=== PATIENT | male | born 1965 | race Caucasian/White ===

== ENCOUNTER 2022-10-17 22:40 | Observation (INO) ==
[2022-10-17] MEDS ORDERED: KETOROLAC 30 MG/ML VIAL IV STA (22:54)
[2022-10-17] MEDS ORDERED: SODIUM CHLORIDE 0.9% 1000ML 1,000 ML IV ONE (22:54)
[2022-10-17] MEDS ORDERED: TAMSULOSIN HCL 0.4 MG CAP PO ONE (23:23)
--- NOTE | 2022-10-17 23:26 | Emergency Department Note ---
History of Present Illness General Chief complaint: Abdominal Pain Stated complaint: KIDNEY STONES,SEVERE ABDOMINAL PAIN, Time Seen by Provider: 10/17/22 22:53 History of Present Illness Maximum Pain Intensity: 8 57-year-old male presents emergency department was actually seen by me last night and diagnosed with a 3 mm kidney stone at the right UVJ he presents stating that he did take pain medicine that I prescribed him at noon and around 6 PM tonight states that the pain is increased was unable to sleep due to the pain states the pain is right flank there are no other specific complaints of nausea vomiting or fever. There are no other mitigating or alleviating factors Home Medications Medication Instructions Recorded Confirmed Type hydrocodone 5 mg-acetaminophen 325 1 tab PO Q6H PRN pain #14 tabs 10/17/22 10/17/22 Rx mg tablet ondansetron 4 mg disintegrating 4 mg PO Q8H 5 days #15 tabs 10/17/22 10/17/22 Rx tablet tamsulosin 0.4 mg capsule (Flomax) 0.4 mg PO DAILY #7 caps 10/17/22 10/17/22 Rx Allergies Allergy/AdvReac Type Severity Reaction Status Date / Time No Known Allergies Allergy Verified 10/17/22 00:35 Past Med/Surg History Social History Smoking Status: Former smoker Preferred Language: Solomon Islander Feels Safe at Home: Yes Immunizations: Past medical history is kidney stones Review of Systems A total of 10 systems reviewed and were otherwise negative Genitourinary (Male): + flank pain Physical Exam Vital Signs Vital Signs - 24 hr 10/17/22 22:42 10/17/22 22:54 10/17/22 22:54 Temperature 35.9 C L Temperature Source Temporal Artery Scan Pulse Rate 78 Pulse Rate [Apical] 64 Pulse Rate from SpO2 Sensor Pulse Rhythm [Apical] Regular Pulse Strength [Apical] Normal Respiratory Rate 18 18 Respiratory Effort / Characteristics Non-Labored Spontaneous Non-Labored Respiratory Depth Normal Normal Respiratory Pattern Regular Blood Pressure 165/94 H Blood Pressure [Right Arm] 174/96 H Blood Pressure Mean 117 Blood Pressure Mean [Right Arm] 122 Blood Pressure Position Sitting Pulse Oximetry 98 99 98 Oxygen Delivery Method Room Air Room Air Room Air Sepsis Recent Fever Within 48 Hours No Sepsis New/Unexplained Change in Mental Status N/A Sepsis Action Taken by Nursing No Action Required 10/17/22 23:26 10/17/22 23:26 10/17/22 23:30 Temperature Temperature Source Pulse Rate 64 65 61 Pulse Rate [Apical] Pulse Rate from SpO2 Sensor 66 61 Pulse Rhythm [Apical] Pulse Strength [Apical] Respiratory Rate 14 15 Respiratory Effort / Characteristics Respiratory Depth Respiratory Pattern Blood Pressure Blood Pressure [Right Arm] Blood Pressure Mean Blood Pressure Mean [Right Arm] Blood Pressure Position Pulse Oximetry 99 98 Oxygen Delivery Method Sepsis Recent Fever Within 48 Hours Sepsis New/Unexplained Change in Mental Status Sepsis Action Taken by Nursing 10/17/22 23:40 10/17/22 23:50 10/18/22 00:00 Temperature Temperature Source Pulse Rate 76 64 63 Pulse Rate [Apical] Pulse Rate from SpO2 Sensor 78 66 62 Pulse Rhythm [Apical] Pulse Strength [Apical] Respiratory Rate 29 H 18 15 Respiratory Effort / Characteristics Respiratory Depth Respiratory Pattern Blood Pressure Blood Pressure [Right Arm] Blood Pressure Mean Blood Pressure Mean [Right Arm] Blood Pressure Position Pulse Oximetry 98 98 98 Oxygen Delivery Method Sepsis Recent Fever Within 48 Hours Sepsis New/Unexplained Change in Mental Status Sepsis Action Taken by Nursing 10/18/22 00:07 10/18/22 00:07 10/18/22 00:10 Temperature Temperature Source Pulse Rate 70 72 Pulse Rate [Apical] Pulse Rate from SpO2 Sensor 68 72 Pulse Rhythm [Apical] Pulse Strength [Apical] Respiratory Rate 18 14 Respiratory Effort / Characteristics Respiratory Depth Respiratory Pattern Blood Pressure 155/84 H Blood Pressure [Right Arm] Blood Pressure Mean 107 Blood Pressure Mean [Right Arm] Blood Pressure Position Pulse Oximetry 98 97 Oxygen Delivery Method Sepsis Recent Fever Within 48 Hours Sepsis New/Unexplained Change in Mental Status Sepsis Action Taken by Nursing GENERAL: Patient is awake alert in no acute distress patient is resting comfortably and showing no signs of anxiety EYES: The conjunctivae are clear. The pupils are round and reactive. EARS, NOSE, MOUTH AND THROAT: The nose is without any evidence of any deformity. Mucous membranes are moist. Tongue is midline. NECK: The neck is nontender and supple. RESPIRATORY: Normal respiratory effort is noted there is no evidence of wheezing rhonchi or rales CARDIOVASCULAR: Regular rate and rhythm noted there no murmurs rubs or gallops normal S1 normal S2. GASTROINTESTINAL: The abdomen is soft. Abdomen is nontender. BACK: No midline tenderness or or step-off noted range of motion in flexion extension as well as rotation no signs of muscle spasm noted MUSCULOSKELETAL/EXTREMITIES: There is no evidence of gross deformity full range of motion is noted in the hips and shoulders. SKIN: There is no obvious evidence of any rash. There are no petechiae, pallor or cyanosis noted. NEUROLOGIC: Patient is awake alert and oriented x3 strength is symmetric PSYCH: Normal affect Course Reevaluation(s) Reevaluation #1: Patient continues to complain of pain. He looks extremely comfortable. I discussed evaluation with the patient at bedside Time: :34 Consultations Consultation #1: Case was discussed with the [facility] for admission for intractable pain with ureterolithiasis Time: :35 Consultation #2: Spoke with Jayjay Vaughn from urology for evaluation consult Time: :35 Administered Medications Discontinued Medications Fentanyl Citrate (Fentanyl Citrate 100 Mcg/2 Ml Vial) 50 mcg IV NOW STA Stop: 10/18/22 00:02 Last Admin: 10/18/22 00:07 Dose: 50 mcg Documented By: RSYohana Sodium Chloride (Nss 1000ml) 1,000 mls @ 999 mls/hr IV .Q1H1M ONE Stop: 10/17/22 23:54 Last Infusion: 10/17/22 23:55 Dose: 0 mls/hr Documented By: Admin: 10/17/22 23:21 Dose: 999 mls/hr Documented By: RSYohana Ketorolac Tromethamine (Ketorolac 30 Mg/Ml Vial) 30 mg IV NOW STA Stop: 10/17/22 22:55 Last Admin: 10/17/22 23:21 Dose: 30 mg Documented By: RSYohana Tamsulosin HCl (Tamsulosin Hcl 0.4 Mg Cap) 0.4 mg PO NOW ONE Stop: 10/17/22 23:24 Last Admin: 10/18/22 00:07 Dose: Not Given Documented By: RSL Medical Decision Making Medical Records Attestation: I reviewed the patient's medical records. Home Medications Current Medication List: was personally reviewed by me Laboratory Data Attestation: I reviewed the patient's lab results. Patient has leukocytosis 10/17/22 23:22 10/17/22 23:22 Lab Results 10/17/22 10/17/22 10/17/22 Range/Units 23:22 23:22 23:57 WBC 13.67 H (4.8-10.8) K/ul RBC 4.40 L (4.70-6.10) M/uL Hgb 13.2 L (14.0-18.0) g/dl Hct 38.4 L (42.0-52.0) % MCV 87.3 (80.0-100.0) fL MCH 30.0 (25.0-34.0) pg MCHC 34.4 (32.0-36.0) g/dL RDW Std Deviation 39.6 (36.4-46.3) fL RDW Coeff of Raymundo 12.4 (11.5-14.5) % Plt Count 201 (130-400) K/uL MPV 9.7 (9.4-12.4) fL Immature Gran % (Auto) 0.3 % Neut % (Auto) 84.9 % Lymph % (Auto) 6.0 % [place] % (Auto) 8.6 % Eos % (Auto) 0.1 % Baso % (Auto) 0.1 % Neut # (Auto) 11.60 H (1.40-6.50) K/uL Lymph # (Auto) 0.82 L (1.2-3.4) K/uL [place] # (Auto) 1.18 H (0.11-0.59) K/uL Eos # (Auto) 0.01 (0-0.50) K/uL Baso # (Auto) 0.02 (0-0.2) K/uL Immature Gran # (Auto) 0.04 (0.01-0.20) K/uL Sodium 132 L (136-145) mmol/L Potassium 3.8 (3.5-5.1) mmol/L Chloride 103 (98-107) mmol/L Carbon Dioxide 20 L (21-32) mmol/L Anion Gap 9 (3-11) BUN 19 (6-23) mg/dl Creatinine 1.26 (0.6-1.4) mg/dl Est Cr Clr Drug Dosing 73.4 ml/min Est GFR ( Amer) 72.9 ml/min Est GFR (Non-Af Amer) 62.9 ml/min BUN/Creatinine Ratio 15.1 (10-20) Glucose 145 H (70-99(Fasting)) mg/dl Calcium 9.1 (8.5-10.1) mg/dl Total Bilirubin 1.0 (0.2-1.0) mg/dl AST 17 (13-39) U/L ALT 26 (7-52) U/L Alkaline Phosphatase 47 (34-104) U/L Total Protein 7.5 (6.0-8.3) gm/dl Albumin 4.6 (3.4-5.0) gm/dl Globulin 2.9 (2.5-4.0) gm/dl Albumin/Globulin Ratio 1.6 (0.9-2) Urine Color Yellow Urine Appearance Clear (Clear) Urine pH 6.5 (4.5-7.5) Ur Specific [place] 1.010 (1.000-1.030) Urine Protein Negative (Negative) Urine Glucose (UA) Trace H (Negative) Urine Ketones 1+ H (Negative) Urine Blood 2+ H (Negative) Urine Nitrite Negative (Negative) Urine Bilirubin Negative (Negative) Urine Urobilinogen Negative (Negative) Ur Leukocyte Esterase Negative (Negative) Urine WBC (Auto) 1-5 (0-5) /hpf Urine RBC (Auto) 0-4 (0-4) /hpf U Hyaline Cast (Auto) 0 (0-5) /lpf U Epithel Cells (Auto) 0-5 (0-5) /lpf Urine Bacteria (Auto) Negative (Negative) MDM Narrative Medical decision making differential diagnosis includes renal colic, ureterolithiasis, dehydration Plan is to recheck labs, give IV fluids IV Toradol Patient continued to have pain despite medications and IV fluids Patient does not show any signs of sepsis due to a kidney stone at this time except he does have an elevated white blood cell count his urine is not infected his creatinine is normal Case was discussed with the physician assistant manager/embalmer for urology Case was discussed with the [facility] for admission Impression & Plan Ureterolithiasis, Intractable pain Discharge Plan Visit Data Chief Complaint: Abdominal Pain Stated Complaint: KIDNEY STONES,SEVERE ABDOMINAL PAIN, ED Provider: Uday Car Discharge Problem: Ureterolithiasis, Intractable pain Patient Disposition: Admitted As Inpatient Forms Stand Alone Forms: [facility] [employer] Prescriptions Prescriptions: No Action ondansetron 4 mg tablet,disintegrating 4 mg PO Q8H 5 Days Qty: 15 0RF tamsulosin [Flomax] 0.4 mg capsule 0.4 mg PO DAILY Qty: 7 0RF hydrocodone-acetaminophen 5-325 mg tablet 1 tab PO Q6H PRN (Reason: pain) Qty: 14 0RF Referrals Referrals: PCP,NO [Primary Care Provider] -
[2022-10-17 23:40] LABS: Basophils # (auto) 0.02 K/uL (0-0.2); Basophils % (auto) 0.1 %; Eosinophils # (auto) 0.01 K/uL (0-0.50); Eosinophils % (auto) 0.1 %; Hematocrit (blood only) 38.4 % (42.0-52.0); Hemoglobin 13.2 g/dl (14.0-18.0); Immature Granulocytes # (auto) 0.04 K/uL (0.01-0.20); Immature Granulocytes % (auto) 0.3 %; Lymphocytes # (auto) 0.82 K/uL (1.2-3.4); Mean Corpuscular Hgb Conc 34.4 g/dL (32.0-36.0); Mean Corpuscular Volume 87.3 fL (80.0-100.0); Mean Platelet Volume 9.7 fL (9.4-12.4); Monocytes # (auto) 1.18 K/uL (0.11-0.59); Monocytes % (auto) 8.6 %; Neutrophils % (auto) 84.9 %; Platelet Count 201 K/uL (130-400); RDW Coefficient of Variation 12.4 % (11.5-14.5); RDW Standard Deviation 39.6 fL (36.4-46.3); White Blood Count 13.67 K/ul (4.8-10.8)
[2022-10-18 00:01] LABS: Albumin Globulin Ratio 1.6 (0.9-2); Albumin Level 4.6 gm/dl (3.4-5.0); BUN Creatinine Ratio 15.1 (10-20); Calcium 9.1 mg/dl (8.5-10.1); Creatinine Clr Calc Pharmacy 73.4 ml/min; Est GFR (African American) 72.9 ml/min; Est GFR (Non-African American) 62.9 ml/min; Globulin 2.9 gm/dl (2.5-4.0); Potassium 3.8 mmol/L (3.5-5.1); Total Protein 7.5 gm/dl (6.0-8.3)
[2022-10-18] MEDS ORDERED: fentaNYL citrate 100 MCG/2 ML VIAL IV STA (00:01)
[2022-10-18 00:26] LABS: Appearance Urine Clear (Clear); Bacteria Urine Automated Negative (Negative); Bilirubin Urine Negative (Negative); Blood Urine 2+ (Negative); Cast Urine Automated 0 /lpf (0-5); Color Urine Yellow; Epithelial Cell Urine Auto 0-5 /lpf (0-5); Glucose Urine UA Trace (Negative); Ketones Urine 1+ (Negative); Leukocyte Esterase Urine Negative (Negative); Nitrite Urine Negative (Negative); Protein Urine Negative (Negative); RBC Urine Automated 0-4 /hpf (0-4); Urobilinogen Urine Negative (Negative); pH Urine 6.5 (4.5-7.5)
--- NOTE | 2022-10-18 01:37 | History & Physical Report ---
Date of Service October 18, 2022 Assessment & Plan (1) Asymptomatic hypertensive urgency: Plan: Secondary to obstructive uropathy from recurrent urolithiasis, no sepsis for now Likely chronic BP elevation given LVH on EKG Anemia, unknown duration, ? Secondary to microscopic hematuria Systolic murmur Hyperglycemia rule out DM GMF Analgesia Initiate lisinopril Continue Flomax, strain urine Urology consult Re: Obstructive uropathy N.p.o. until patient seen by urology in anticipation of procedural intervention TTE RE systolic murmur Check hemoglobin A1c DVT prophylaxis. Lovenox subcu Full code Text document was generated using [employer] voice recognition software. It may contain grammatical or spelling errors. Kindly contact undersigned for clarification of any documentation item in question. History of Present Illness Chief Complaint: Kidney stone pain Primary Care Provider: NO PCP History obtained from patient and records. Medical history significant for urolithiasis. 3 days history of achy right flank pain complaints reminiscent of kidney stone attack from 10 years ago (spontaneous passage following [place] ER visit) with some chills. No hematuria. Patient seen at the ER yesterday. CT abdomen pelvis initial read showed 3.3 mm obstructing distal right ureteral stone at right ureterovesical junction causing moderate right hydronephrosis/hydroureter with mild right perinephric stranding. BPH and enlarged fatty liver noted as well. Patient sent home on Flomax, Vicodin and Zofran medications and instructed to follow-up with urology outpatient. Patient return to ER with worsening symptoms associated with constipation. Poor appetite. SBP 170s upon at the ER. Medical History as above Surgical History : Hernia surgery Family History : Kidney stones, hypertension Personal/Social history : Non-smoker, occasional EtOH intake, [employer] employee Allergies Allergy/AdvReac Type Severity Reaction Status Date / Time No Known Allergies Allergy Verified 10/17/22 00:35 Home Medications Medication Instructions Recorded Confirmed Type hydrocodone 5 mg-acetaminophen 325 1 tab PO Q6H PRN pain #14 tabs 10/17/22 10/17/22 Rx mg tablet ondansetron 4 mg disintegrating 4 mg PO Q8H 5 days #15 tabs 10/17/22 10/17/22 Rx tablet tamsulosin 0.4 mg capsule (Flomax) 0.4 mg PO DAILY #7 caps 10/17/22 10/17/22 Rx Past Med/Surg History Social History Smoking Status: Never smoker Hx Alcohol Use: Yes Alcohol type: hard liquor Hx Substance Use: No Preferred Language: Rwandan Communication Ability: Effective Drop Forger Required: No Beliefs That Will Affect Care: None Current Living Situation: Family Other Information That Helps Us Care for You: No Feels Safe at Home: Yes Safety Concerns: Feels Safe At This Time Assistive Devices: Glasses Review of Systems Review of Systems: As per HPI, all other systems reviewed and negative Physical Exam Physical Exam: GENERAL: Slightly uncomfortable, slightly anxious, pleasant, no respiratory distress SKIN: Normal color, warm HEENT: Alopecia, [place] palpebral conjunctivae, no ptosis, dry buccal mucosa NECK : Supple, no tenderness CHEST : CTA, no tenderness HEART : RRR, systolic murmur best heard over left sternal border ABDOMEN: Some distention, right flank tenderness EXTREMITIES : No LE swelling/tenderness, no other conspicuous deformities noted NEUROLOGIC : Coherent, no facial asymmetry, no other gross focality Results & Data Results & Data ([facility]) Vital Signs (Past 12 Hours) Vital Signs Temp Pulse Pulse Resp BP BP Pulse Ox 10/18/22 00:10 72 14 97 10/18/22 00:07 70 18 98 10/18/22 00:07 155/84 H 10/18/22 00:00 63 15 98 10/17/22 23:50 64 18 98 10/17/22 23:40 76 29 H 98 10/17/22 23:30 61 15 98 10/17/22 23:26 65 14 99 10/17/22 23:26 64 10/17/22 22:54 98 10/17/22 22:54 64 18 174/96 H 99 10/17/22 22:42 35.9 C L 78 18 165/94 H 98 O2 Del Method 10/18/22 00:10 10/18/22 00:07 10/18/22 00:07 10/18/22 00:00 10/17/22 23:50 10/17/22 23:40 10/17/22 23:30 10/17/22 23:26 10/17/22 23:26 10/17/22 22:54 Room Air 10/17/22 22:54 Room Air 10/17/22 22:42 Room Air Laboratory Results Laboratory Results WBC 13.67 K/ul (4.8-10.8) H 10/17/22 23: RBC 4.40 M/uL (4.70-6.10) L 10/17/22 23:22 Hgb 13.2 g/dl (14.0-18.0) L 10/17/22 23:22 Hct 38.4 % (42.0-52.0) L 10/17/22 23: MCV 87.3 fL (80.0-100.0) 10/17/22 23: MCH 30.0 pg (25.0-34.0) 10/17/22 23: MCHC 34.4 g/dL (32.0-36.0) 10/17/22 23: RDW Std Deviation 39.6 fL (36.4-46.3) 10/17/22: RDW Coeff of Raym[place] 12.4 % (11.5-14.5) 10/17/22: Plt Count 201 K/uL (130-400) 10/17/22 23: MPV 9.7 fL (9.4-12.4) 10/17/22 23: Immature Gran % (Auto) 0.3 % 10/17/22 23: Neut % (Auto) 84.9 % 10/17/22 23: Lymph % (Auto) 6.0 % 10/17/22: [place] % (Auto) 8.6 % 10/17/22 23: Eos % (Auto) 0.1 % 10/17/22 23: Baso % (Auto) 0.1 % 10/17/22 23: Neut # (Auto) 11.60 K/uL (1.40-6.50) H 10/17/22 23:22 Lymph # (Auto) 0.82 K/uL (1.2-3.4) L 10/17/22 23: [place] # (Auto) 1.18 K/uL (0.11-0.59) H 10/17/22 23:22 Eos # (Auto) 0.01 K/uL (0-0.50) 10/17/22 23: Baso # (Auto) 0.02 K/uL (0-0.2) 10/17/22 23:22 Immature Gran # (Auto) 0.04 K/uL (0.01-0.20) 10/17/22 23:22 Sodium 132 mmol/L (136-145) L 10/17/22 23:22 Potassium 3.8 mmol/L (3.5-5.1) 10/17/22 23:22 Chloride 103 mmol/L (98-107) 10/17/22 23:22 Carbon Dioxide 20 mmol/L (21-32) L 10/17/22 23:22 Anion Gap 9 (3-11) 10/17/22 23:22 BUN 19 mg/dl (6-23) 10/17/22 23:22 Creatinine 1.26 mg/dl (0.6-1.4) 10/17/22 23:22 Est Cr Clr Drug Dosing 73.4 ml/min 10/17/22 23:22 Est GFR ( Amer) 72.9 ml/min 10/17/22 23:22 Est GFR (Non-Af Amer) 62.9 ml/min 10/17/22 23:22 BUN/Creatinine Ratio 15.1 (10-20) 10/17/22 23:22 Glucose 145 mg/dl (70-99(Fasting)) H 10/17/22 23:22 Calcium 9.1 mg/dl (8.5-10.1) 10/17/22 23:22 Total Bilirubin 1.0 mg/dl (0.2-1.0) 10/17/22 23:22 AST 17 U/L (13-39) 10/17/22 23:22 ALT 26 U/L (7-52) 10/17/22 23:22 Alkaline Phosphatase 47 U/L (34-104) 10/17/22 23:22 Total Protein 7.5 gm/dl (6.0-8.3) 10/17/22 23:22 Albumin 4.6 gm/dl (3.4-5.0) 10/17/22 23:22 Globulin 2.9 gm/dl (2.5-4.0) 10/17/22 23:22 Albumin/Globulin Ratio 1.6 (0.9-2) 10/17/22 23:22 Urine Color Yellow 10/17/22 23:57 Urine Appearance Clear (Clear) 10/17/22 23:57 Urine pH 6.5 (4.5-7.5) 10/17/22 23:57 Ur Specific [place] 1.010 (1.000-1.030) 10/17/22 23:57 Urine Protein Negative (Negative) 10/17/22 23:57 Urine Glucose (UA) Trace (Negative) H 10/17/22 23:57 Urine Ketones 1+ (Negative) H 10/17/22 23:57 Urine Blood 2+ (Negative) H 10/17/22 23:57 Urine Nitrite Negative (Negative) 10/17/22 23:57 Urine Bilirubin Negative (Negative) 10/17/22 23:57 Urine Urobilinogen Negative (Negative) 10/17/22 23:57 Ur Leukocyte Esterase Negative (Negative) 10/17/22 23:57 Urine WBC (Auto) 1-5 /hpf (0-5) 10/17/22 23:57 Urine RBC (Auto) 0-4 /hpf (0-4) 10/17/22 23:57 U Hyaline Cast (Auto) 0 /lpf (0-5) 10/17/22 23:57 U Epithel Cells (Auto) 0-5 /lpf (0-5) 10/17/22 23:57 Urine Bacteria (Auto) Negative (Negative) 10/17/22 23:57 Diagnostic Findings Chest x-ray as per my interpretation borderline cardiomegaly EKG as per my interpretation : Rate 75, NSR, LAD, LAFB, LVH, no ischemia
[2022-10-18] MEDS ORDERED: PROMETHAZINE HCL 12.5 MG in SODIUM CHLORIDE 0.9% 50 ML IV PRN (01:40)
[2022-10-18] MEDS ORDERED: oxyCODONE HCL IR 5 MG TAB (IMMEDIATE RELEASE) PO PRN (01:40)
[2022-10-18] MEDS ORDERED: LORazepam 0.5 MG TAB PO PRN (01:40)
[2022-10-18] MEDS ORDERED: KETOROLAC TROMETHAMINE 15 MG/ML VIAL IV PRN (01:40)
[2022-10-18] MEDS ORDERED: LACTATED RINGER'S 1,000 ML IV ONE (01:41)
--- NOTE | 2022-10-18 01:48 | Urology Consultation ---
Date of Consultation October 18, 2022 Assessment & Plan (1) Ureterolithiasis: I discussed with the treating emergency room physician and he is being admitted on the hospitalist service. Recommend proceeding as follows. Provide analgesics provide antiemetics Provide IV fluid for hydration Provide Flomax for expulsive therapy At the present time the patient has a slight leukocytosis but he is normotensive without tachycardia or fever and he has normal renal function. Therefore not feel an emergent urologic procedure is required at this time. I did discuss with the patient that if he is unable to pass the stone with conservative management as noted above he may require cystoscopy. We have therefore requested the patient stay n.p.o. that way in the event in the morning if he is still unable to pass the stone he will be prepared for the operating room. Additional recommendations will be forthcoming based on his clinical course as it unfolds Supervising Physician Co-Signing Physician Notes Agree with the note above. Distal right ureteral calculus, my partner will take him to the OR today for stone treatment and stent placement History of Present Illness Reason for Consultation: Nephrolithiasis History of Present Illness The patient was seen in the emergency department on 10/16/2022. At this time the patient had a CT scan of the abdomen pelvis that showed a 4 mm distal right ureteral calculus resulting in mild right hydronephrosis. There is some perinephric and periureteral stranding noted. The patient notes that he did present to the emergency department as he was having approximate 3 to 4 days of right flank pain with some radiation to the front of his abdomen. The patient notes that since discharge from the emergency department yesterday he has had some continued, persistent, and worsening pain in the right flank with some radiation to the right abdomen. He denies any nausea or vomiting. He denies any fevers, shakes, or chills. He denies any dysuria or hematuria. Due to the unremitting nature of the pain he presented to the emergency department. It is nowhere the mention that he notes that approximate 10 years ago he did have a kidney stone but he was able to successfully pass this on his own. Patient did not undergo repeat imaging today but he did have labs which included a CBC were white blood cell count was 13.7. Hemoglobin and hematocrit were 13.2 and 38.4 with a normal platelet count. Chemistry profile showed sodium is 132 with a normal potassium. BUN and creatinine were both normal. Urinalysis was not indicative of infection. A COVID test is pending. Since arrival to the emergency department today the patient has received intrav enous fluids and has thus far received approximate 1 L of fluid. He has received Flomax and analgesics in the form of fentanyl and Toradol. At the time of my interview the patient was in bed and he was in no distress. Allergies Allergy/AdvReac Type Severity Reaction Status Date / Time No Known Allergies Allergy Verified 10/17/22 00:35 Home Medications Medication Instructions Recorded Confirmed Type hydrocodone 5 mg-acetaminophen 325 1 tab PO Q6H PRN pain #14 tabs 10/17/22 10/17/22 Rx mg tablet ondansetron 4 mg disintegrating 4 mg PO Q8H 5 days #15 tabs 10/17/22 10/17/22 Rx tablet tamsulosin 0.4 mg capsule (Flomax) 0.4 mg PO DAILY #7 caps 10/17/22 10/17/22 Rx Patient History Social History Smoking Status: Never smoker Hx Alcohol Use: Yes Alcohol type: hard liquor Hx Substance Use: No Preferred Language: Hebrew Communication Ability: Effective Filter Operator Required: No Beliefs That Will Affect Care: None Current Living Situation: Family Other Information That Helps Us Care for You: No Feels Safe at Home: Yes Safety Concerns: Feels Safe At This Time Assistive Devices: Glasses Review of Systems Constitutional: no fever and no chills Eyes: no eye pain Ear, Nose, Mouth, Throat: no ear pain Respiratory: no cough and no dyspnea Cardiovascular: no chest pain Gastrointestinal: + abdominal pain (Radiating from right flank); no nausea and no vomiting Genitourinary: + flank pain (Right sided); no dysuria or no hematuria Musculoskeletal: + back pain (Right flank) Integumentary: no rash Neurologic: no localized weakness Physical Exam Constitutional: WD/WN, vitals as above Eyes: no conjunctival abnormality ENMT: Ears: no hearing impairment and no external ear abnormality Mouth: no oropharynx abnormality Neck: trachea midline Respiratory: normal respiratory effort; no respiratory distress and no labored breathing Cardiovascular: Rate/Rhythm: regular rate and regular rhythm Gastrointestinal (Abdomen): Soft, nonrigid, nondistended. There is some slight pain with palpation on the right side of his abdomen in the hypogastric region. There is no rebound tenderness or guarding. Musculoskeletal: No calf tenderness Skin: no rashes Neurologic: moves all extremities Psychiatric: A+Ox3, euthymic affect Genitourinary: + CVA tenderness (Right sided noted with percussion) Results & Data ([facility]) Vital Signs (Past 12 Hours) Vital Signs Temp Pulse Pulse Resp BP BP Pulse Ox 10/18/22 00:10 72 14 97 10/18/22 00:07 70 18 98 10/18/22 00:07 155/84 H 10/18/22 00:00 63 15 98 10/17/22 23:50 64 18 98 10/17/22 23:40 76 29 H 98 10/17/22 23:30 61 15 98 10/17/22 23:26 65 14 99 10/17/22 23:26 64 10/17/22 22:54 98 10/17/22 22:54 64 18 174/96 H 99 10/17/22 22:42 35.9 C L 78 18 165/94 H 98 O2 Del Method 10/18/22 00:10 10/18/22 00:07 10/18/22 00:07 10/18/22 00:00 10/17/22 23:50 10/17/22 23:40 10/17/22 23:30 10/17/22 23:26 10/17/22 23:26 10/17/22 22:54 Room Air 10/17/22 22:54 Room Air 10/17/22 22:42 Room Air PG Care Time/CCT Total # of Minutes Spent Total Time Spent with Patient: Total time spent is greater than 50% in coordination of care (as documented) at patient's floor/unit and/or counseling patient: Coding Level of Care Code INP/OBS CONSULT LVL 5, 80 MIN Diagnoses Ureterolithiasis N20.1
[2022-10-18] MEDS ORDERED: MoRPHine SULFATE 4 MG/ML 1 ML CARP\\VIAL ONE (02:49)
[2022-10-18] MEDS ORDERED: TAMSULOSIN HCL 0.4 MG CAP ONE (02:50)
[2022-10-18] MEDS ORDERED: POLYETHYLENE (MIRALAX) 17 GM PACK PO PRN (02:59)
[2022-10-18] MEDS ORDERED: MoRPHine SULFATE 4 MG/ML 1 ML CARP\\VIAL IV PRN (02:59)
[2022-10-18] MEDS ORDERED: MELATONIN 3 MG TAB PO PRN (03:01)
[2022-10-18] MEDS ORDERED: lisinopril 2.5 MG TAB PO ONE (03:54)
[2022-10-18] MEDS ORDERED: ACETAMINOPHEN 325 MG TAB PO PRN (04:10)
[2022-10-18 06:53] LABS: Estimated Average Glucose 105 mg/dl; Hemoglobin A1C 5.3 % (4.5-5.6)
[2022-10-18 07:03] LABS: Basophils # (auto) 0.02 K/uL (0-0.2); Basophils % (auto) 0.2 %; Eosinophils # (auto) 0.03 K/uL (0-0.50); Eosinophils % (auto) 0.3 %; Hematocrit (blood only) 35.6 % (42.0-52.0); Hemoglobin 12.1 g/dl (14.0-18.0); Immature Granulocytes # (auto) 0.03 K/uL (0.01-0.20); Immature Granulocytes % (auto) 0.3 %; Lymphocytes # (auto) 1.36 K/uL (1.2-3.4); Lymphocytes % (auto) 13.8 %; Mean Corpuscular Hemoglobin 29.8 pg (25.0-34.0); Mean Corpuscular Volume 87.7 fL (80.0-100.0); Monocytes # (auto) 1.04 K/uL (0.11-0.59); Monocytes % (auto) 10.5 %; Neutrophils # (auto) 7.41 K/uL (1.40-6.50); Neutrophils % (auto) 74.9 %; Platelet Count 186 K/uL (130-400); RDW Coefficient of Variation 12.3 % (11.5-14.5); RDW Standard Deviation 39.6 fL (36.4-46.3); Red Blood Count 4.06 M/uL (4.70-6.10); White Blood Count 9.89 K/ul (4.8-10.8)
[2022-10-18 07:24] LABS: BUN Creatinine Ratio 14.3 (10-20); Calcium 8.7 mg/dl (8.5-10.1); Creatinine Clr Calc Pharmacy 87.5 ml/min; Est GFR (African American) 90.9 ml/min; Est GFR (Non-African American) 78.4 ml/min; Potassium 3.5 mmol/L (3.5-5.1)
--- NOTE | 2022-10-18 08:18 | Urology Progress Note ---
Date of Service October 18, 2022 Assessment & Plan (1) Ureterolithiasis: Plan 57-year-old male who returned to the ED yesterday due to intractable right flank pain. He was seen in the ED on 10/16/2022 and diagnosed with a 4 mm distal right ureteral calculus resulting in mild right hydronephrosis. -No stone passage overnight. Still with right flank pain, managing with IV/PO pain medication. -Afebrile and hemodynamically stable. Labs today show no leukocytosis, normal renal function. -UA on arrival not suspicious for infection. -We discussed acute stone management with cystoscopy, stent placement, possible stone treatment. Stone free rates were also discussed as well as possibility of multiple procedures. Ureteral stents were discussed as well as post-operative issues and pain management. -Discussed outpatient options for conservative measures with max expulsion medical therapy. Also discussed possible outpatient ESWL, but would need to obtain KUB to determine if he is a candidate. -Risks/benefits of all procedures discussed. All questions were answered. -Patient prefers to proceed with cystoscopy, stent placement, possible stone treatment today. -Will plan to proceed to OR today for cystoscopy, right retrograde pyelogram, right ureteral stent placement, possible ureteroscopy, laser lithotripsy/stone treatment with Dr. Kamara depending on findings. -Risks and benefits to be reviewed with the patient by Dr. Kamara. OR notified. COVID test negative. Will cover with IV ciprofloxacin preoperatively. -Keep NPO. -Urology will follow. ATTENDING NOTE: Patient was independently evaluated, assessed, and examined. Agree with note as above. Patient has obstructing stone in the distal right ureter. Does appear to be causing hydronephrosis is having considerable flank pain on the right going in waves with a very severe episodes leading to considerable pain and discomfort. Patient is increasing hydration. Has vitals that are stable. Temperature most recently was 36.9. Patient has been on tamsulosin. White count is 9.89. Creatinine is 1.05. Patient is negative on the COVID examination. Risks and benefits discussed at length for procedure. These include bleeding, infection, injury to surrounding tissues or organs, and risks associated with anesthesia. Patient states understanding and agrees to proceed. Will sign consent and proceed. Plan for cystoscopy and right stone treatment with ureteroscopy. Admission and Anticipated Discharge Date Admission Date: October 18, 2022 Subjective Patient examined at bedside this AM. Awake, resting in bed on arrival. No acute distress. Denies any stone passage overnight. No fevers. Still with right flank pain, managing with IV/PO pain medication. Has been NPO. Review of Systems Constitutional: as per Subjective / HPI Genitourinary: + as per Subjective / HPI Physical Exam Constitutional: no acute distress Respiratory: no respiratory distress and no labored breathing Neurologic: awake Psychiatric: Orientation: alert and oriented x 3 Results & Data ([facility]) Vital Signs (Past 12 Hours) Vital Signs Temp Pulse Pulse Pulse Resp BP BP 10/18/22 07:55 10/18/22 04:21 36.6 C 78 18 161/84 H 10/18/22 03:25 70 10/18/22 03:30 71 18 161/93 H 10/18/22 00:10 72 14 10/18/22 00:07 70 18 10/18/22 00:07 155/84 H 10/18/22 00:00 63 15 10/17/22 23:50 64 18 10/17/22 23:40 76 29 H 10/17/22 23:30 61 15 10/17/22 23:26 65 14 10/17/22 23:26 64 10/17/22 22:54 10/17/22 22:54 64 18 174/96 H 10/17/22 22:42 35.9 C L 78 18 165/94 H Pulse Ox O2 Del Method 10/18/22 07:55 Room Air 10/18/22 04:21 96 Room Air 10/18/22 03:25 10/18/22 03:30 96 Room Air 10/18/22 00:10 97 10/18/22 00:07 98 10/18/22 00:07 10/18/22 00:00 98 10/17/22 23:50 98 10/17/22 23:40 98 10/17/22 23:30 98 10/17/22 23:26 99 10/17/22 23:26 10/17/22 22:54 98 Room Air 10/17/22 22:54 99 Room Air 10/17/22 22:42 98 Room Air PG Care Time/CCT Total # of Minutes Spent Total Time Spent with Patient: Total time spent is greater than 50% in coordination of care (as documented) at patient's floor/unit and/or counseling patient: Coding Level of Care Code None Diagnoses Ureterolithiasis N20.1
[2022-10-18] MEDS ORDERED: ENOXAPARIN INJ 40 MG/0.4 ML SYR SQ SCH (09:00)
--- NOTE | 2022-10-18 09:08 | Anesthesiology Consultation ---
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 Surgery Operation Date: 10/18/22 11:30 Proposed Procedures p Cystoscopy, Right Retrograde Pyelogram, Right Stent, Possible Ureteroscopy, Laser Lithotripsy and Stone Treatment - Sid Kamara, DO Height/Weight Height: 5 ft 10 in Weight: 89.8 kg Allergies Allergy/AdvReac Type Severity Reaction Status Date / Time No Known Allergies Allergy Verified 10/17/22 00:35 Medications Home Medications Medication Instructions Recorded Confirmed Last Taken hydrocodone 5 mg-acetaminophen 325 1 tab PO Q6H PRN pain #14 tabs 10/17/22 10/17/22 Unknown mg tablet ondansetron 4 mg disintegrating 4 mg PO Q8H 5 days #15 tabs 10/17/22 10/17/22 Unknown tablet tamsulosin 0.4 mg capsule (Flomax) 0.4 mg PO DAILY #7 caps 10/17/22 10/17/22 Unknown Active Medications Generic Name Dose Route Start Last Admin Trade Name Freq PRN Reason Stop Dose Admin Acetaminophen 650 mg 10/18/22 04:10 10/18/22 05:15 Acetaminophen 325 Mg Tab PO 11/17/22 04:09 650 mg Q4H PRN Administration pain/fever Enoxaparin Sodium 40 mg 10/18/22 09:00 10/18/22 07:44 Enoxaparin Inj 40 Mg/0.4 Ml Syr SQ 11/17/22 08:59 40 mg QAM RISHI Administration Lactated Ringer's 1,000 mls @ 75 mls/hr 10/18/22 01:41 10/18/22 03:46 Lr IV 10/18/22 15:00 75 mls/hr .[id number] ONE Administration Oxycodone HCl 5 - 10 mg 10/18/22 01:40 10/18/22 04:57 Oxycodone Hcl Ir 5 Mg Tab (Immediate Release) PO 11/01/22 01:39 10 mg QID PRN Administration Pain NPO Date Last Intake of Fluids: 10/17/22 Time Last Intake of Fluids: 23:00 Date Last Intake of Solids: 10/17/22 Time Last Intake of Solids: 23:00 Social History Smoking Status: Never smoker Hx Alcohol Use: Yes Alcohol type: hard liquor alcohol intake frequency: holidays/special occasions only Hx Substance Use: No Physical Exam Vital Signs Last Vital Signs Temp 97.9 F 10/18/22 04:21 Pulse 78 10/18/22 04:21 Resp 18 10/18/22 04:21 BP 161/84 H 10/18/22 04:21 Pulse Ox 96 10/18/22 04:21 O2 Del Method Room Air 10/18/22 07:55 Testing Laboratory Results 10/18/22 05:48 10/18/22 05:48 Hemoglobin A1c 5.3 % (4.5-5.6) 10/17/22 23:22 Urine Color Yellow 10/17/22 23:57 Urine Appearance Clear (Clear) 10/17/22 23:57 Urine pH 6.5 (4.5-7.5) 10/17/22 23:57 Ur Specific [place] 1.010 (1.000-1.030) 10/17/22 23:57 Urine Protein Negative (Negative) 10/17/22 23:57 Urine Glucose (UA) Trace (Negative) H 10/17/22 23:57 Urine Ketones 1+ (Negative) H 10/17/22 23:57 Urine Nitrite Negative (Negative) 10/17/22 23:57 Ur Leukocyte Esterase Negative (Negative) 10/17/22 23:57 Urine WBC (Auto) 1-5 /hpf (0-5) 10/17/22 23:57 Urine RBC (Auto) 0-4 /hpf (0-4) 10/17/22 23:57 U Hyaline Cast (Auto) 0 /lpf (0-5) 10/17/22 23:57 U Epithel Cells (Auto) 0-5 /lpf (0-5) 10/17/22 23:57 Urine Bacteria (Auto) Negative (Negative) 10/17/22 23:57 Electrocardiogram Date: 10/18/22 Normal sinus rhythm, rate 76 bpm Minimal voltage criteria for LVH, may be normal variant Borderline ECG No previous ECGs available
[2022-10-18] MEDS ORDERED: CIPROFLOXACIN / D5W 400 MG/200 ML BAG IV SCH (09:15)
--- NOTE | 2022-10-18 09:24 | XRay Report ---
XR chest 1V portable HISTORY: hyponatremia COMPARISON: None. FINDINGS: The lungs are clear. Cardiac silhouette is normal in size. No pleural effusions. No pneumot horax. IMPRESSION: No acute process. ACT 112: Negative or not required by law. Electronically signed by: Pradeep Lugo M.D. 10/18/2022 9:23 AM
[2022-10-18] MEDS ORDERED: ATROPINE SULFATE 0.1 MG/ML 10ML SYR IV PRN (09:34)
[2022-10-18] MEDS ORDERED: ePHEDrine sulfate 50 MG/ML AMP IV PRN (09:34)
[2022-10-18] MEDS ORDERED: ONDANSETRON INJ 2 MG/ML 2 ML VIAL IV PRN (09:34)
[2022-10-18] MEDS ORDERED: fentaNYL citrate 100 MCG/2 ML VIAL IV PRN (09:34)
[2022-10-18] MEDS ORDERED: LIDOCAINE 2% MPF LOCAL 5 ML VIAL INFIL ONE (09:45)
[2022-10-18] MEDS ORDERED: fentaNYL citrate 100 MCG/2 ML VIAL ONE (09:45)
[2022-10-18] MEDS ORDERED: MIDAZOLAM HCL 1 MG/ML 2ML VIAL ONE (09:45)
[2022-10-18] MEDS ORDERED: PROPOFOL IV EMULSION 10 MG/ML 20 ML VIAL IV ONE (09:45)
[2022-10-18] MEDS ORDERED: ONDANSETRON INJ 2 MG/ML 2 ML VIAL ONE (10:40)
[2022-10-18] MEDS ORDERED: DEXAMETHASONE SOD INJ 4 MG/ML VIAL ONE (10:40)
[2022-10-18] MEDS ORDERED: DIATRIZOATE MEGLUMINE 30% 100ML VIAL INSTIL ONE (10:41)
--- NOTE | 2022-10-18 10:55 | Operative Report ---
PG Post Operative Report Pre & Post Diagnosis Operation Date: 10/18/22 11:30 Pre-Op Diagnosis: Urolithiasis Post-Op Diagnosis: Urolithiasis I identified the patient and participated in the time-out.: Yes Procedure Operation Date: 10/18/22 11:30 Actual Procedures p Cystoscopy with Right Retrograde Pyelogram, Right Ureteral Dilation, Right Stent Placement, Ureteroscopy, Right Basket Extraction - Sid Kamara, Surgeon Sid Kamara, II, DO Dish Person None Estimated Blood Loss 1 Findings Consistent with Post-Op Diagnosis Stone basketed and removed. Stricture of Distal Left UO dilated. Specimens Stone Right Ureter Drains 6 Fr Multilength Anesthesia Type General Complications none Disposition Disposition: Recovery Room Indications Patient with bothersome stones. Risks and benefits discussed at length. Description of Procedure Patient was consented and brought back to the operating room. Patient was placed under anesthesia in the supine position and moved to the dorsal lithotomy position. Patient was prepped and draped in the regular sterile fashion. A time out was completed. A 30degree Cystoscope was placed into the bladder and the entire bladder was examined. The UO's were identified. A significant stricture was noted in the Right UO. The UO was cannulized with a catheter and a retrograde pyelogram was completed. A wire was then placed. Approx 1 cm above the stricture the stone appeared to be in the ureter. The Rigid ureteroscope was taken into the ureter. The UO was dilated. The stone was identified, grasped, removed, and sent for analysis. The entire area was once again examined. The dilated stricture in the distal ureter was open and no considerable bleeding. No residual large fragments or areas of concern were noted. The scope was slowly removed with the wire left in place. Contrast was placed through the scope for a pyelogram to assist in stent placement. The entire ureter was examined as the scope was slowly removed. No obstructions or other areas of concern were noted. With the wire in place, a 6 Fr Double J stent was placed. It was confirmed with fluoroscopy. With the stent in place, the bladder was emptied. The scope was removed. The patient was cleaned, aroused from anesthesia, and transferred to the pacu in stable condition having tolerated the procedure well with no complications. I was present and participated in all aspects of the procedure. The patient will be monitored in the PACU until transferred. Plan to remove stent in 5-7 Days in office. I attest to the content of the Intraoperative Record and any orders documented therein. Any exceptions are noted below.
--- NOTE | 2022-10-18 11:11 | Fluoroscopy Report ---
INTRAOPERATIVE RADIOGRAPHS CLINICAL HISTORY: Right ureteral stent placement. Fluoro time: 11 seconds. Exposure: 2.95 mGy FINDINGS: 2 spot fluoroscopic views of the right abdomen are correlated with abdominal CT dated 2022. The images show the proximal and distal ends of a right ureteral stent in appropriate position. Contrast within the right renal collecting system shows no significant hydronephrosis. IMPRESSION: Intraoperative images from a right ureteral stent placement as above. Electronically signed by: Andrew Kiser M.D. 10/18/2022 11:10 AM
--- NOTE | 2022-10-18 11:24 | Electrocardiogram Report ---
Test Reason : Blood Pressure : / mmHG Vent. Rate : 076 BPM Atrial Rate : 076 BPM P-R Int : 158 ms QRS Dur : 096 ms QT Int : 388 ms P-R-T Axes : 046 010 085 degrees QTc Int : 436 ms Normal sinus rhythm Minimal voltage criteria for LVH, may be normal variant Borderline ECG No previous ECGs available Confirmed by Stuart Ramirez ([id number]) on 10/18/2022 11:23:57 AM Referred By: REFERRED SELF Confirmed By:Jean Pierre Ramirez
--- NOTE | 2022-10-18 12:48 | Anesthesiology Progress Note ---
Date of Service October 18, 2022 Anesthesia Post Procedure Vital Signs Vital Signs: Temp Pulse Pulse Pulse Resp BP BP 10/18/22 12:00 37 C 80 18 109/68 10/18/22 11:35 74 13 113/66 10/18/22 11:25 78 16 115/75 10/18/22 11:15 36.4 C L 70 15 108/67 10/18/22 11:05 70 14 114/73 10/18/22 10:58 36 C L 67 16 107/70 10/18/22 09:31 36.9 C 65 20 10/18/22 07:55 10/18/22 04:21 36.6 C 78 18 10/18/22 03:25 70 10/18/22 03:30 71 18 10/18/22 00:10 72 14 10/18/22 00:07 70 18 10/18/22 00:07 155/84 H 10/18/22 00:00 63 15 10/17/22 23:50 64 18 10/17/22 23:40 76 29 H 10/17/22 23:30 61 15 10/17/22 23:26 65 14 10/17/22 23:26 64 10/17/22 22:54 10/17/22 22:54 64 18 10/17/22 22:42 35.9 C L 78 18 165/94 H BP Pulse Ox O2 Del Method 10/18/22 12:00 96 Room Air 10/18/22 11:35 96 Room Air 10/18/22 11:25 96 Room Air 10/18/22 11:15 96 Room Air 10/18/22 11:05 95 Room Air 10/18/22 10:58 99 Room Air 10/18/22 09:31 121/78 98 Room Air 10/18/22 07:55 Room Air 10/18/22 04:21 161/84 H 96 Room Air 10/18/22 03:25 10/18/22 03:30 161/93 H 96 Room Air 10/18/22 00:10 97 10/18/22 00:07 98 10/18/22 00:07 10/18/22 00:00 98 10/17/22 23:50 98 10/17/22 23:40 98 10/17/22 23:30 98 10/17/22 23:26 99 10/17/22 23:26 10/17/22 22:54 98 Room Air 10/17/22 22:54 174/96 H 99 Room Air 10/17/22 22:42 98 Room Air Pain Intensity Flank: Pain Intensity: 5 Transfer of Care Handoff Completed per policy Notes Mental Status: alert / awake / arousable and participated in evaluation Patient Amnestic to Procedure: Yes Nausea / Vomiting: adequately controlled Pain: adequately controlled Airway Patency, RR, SpO2: stable & adequate BP & HR: stable & adequate Hydration State: stable & adequate Anesthetic Complications: no major complications apparent and Pt Satisfied with anesthetic care
[2022-10-18] MEDS ORDERED: LACTATED RINGER'S 1,000 ML IV SCH (15:00)
--- NOTE | 2022-10-18 15:43 | Hospitalist Progress Note ---
Date of Service October 18, 2022 Assessment & Plan (1) Ureterolithiasis: Plan: Ureterolithiasis Status post stone extraction, right ureter stent placement Renal function stable Doing well after procedure Discussed with urology service, okay for discharge today Continue Flomax daily, as needed [place] as previously prescribed Follow-up with urology service in 1 week for stent removal Hypertension Likely secondary to pain Resolved Follow-up with PCP in 2 weeks Systolic murmur Mild Echocardiogram showing aortic valve sclerosis mild, without significant aortic valvular stenosis Mild anemia Hemoglobin 12-13 Likely secondary to hematuria Follow-up CBC as an outpatient Disposition Discharge to home Follow-up with PCP in 2 weeks Follow-up with urology in 1 week Admission and Anticipated Discharge Date Admission Date: October 18, 2022 Subjective Follow-up for ureteral stone, etc. 6 seen resting in bed, comfortable, not in distress Patient had 6 ureteral stone removal with stent placement in the ureter earlier today States he feels fine overall Denies pain in the left flank or groin area Initially had dysuria, but resolved Initial hematuria but now also resolving no chest pain, dyspnea, palpitations, dizziness No other symptoms States he is ready for discharge today Review of Systems Review of Systems: all noted and negative except for above Physical Exam Physical Exam: General- oriented x 3, not in distress, speaks in sentences with no effort or accessory muscle use Eyes- anicteric Neck- no JVD Lungs- clear breath sounds bilaterally, no rales/wheezes Heart- normal rate, regular rhythm; no murmurs Abdomen- normal bowel sounds, nondistended, soft, nontender No CVA tenderness Extremities- no pretibial edema, no calf tenderness Neuro- alert, oriented x 3; no gross focal neurologic deficits Skin- warm & dry Results & Data Results & Data ([facility]) Vital Signs (Past 12 Hours) Vital Signs Temp Pulse Pulse Resp BP BP Pulse Ox 10/18/22 13:04 37.4 C 75 16 113/68 94 10/18/22 12:00 37 C 80 18 109/68 96 10/18/22 11:35 74 13 113/66 96 10/18/22 11:25 78 16 115/75 96 10/18/22 11:15 36.4 C L 70 15 108/67 96 10/18/22 11:05 70 14 114/73 95 10/18/22 10:58 36 C L 67 16 107/70 99 10/18/22 09:31 36.9 C 65 20 121/78 98 10/18/22 07:55 10/18/22 04:21 36.6 C 78 18 161/84 H 96 O2 Del Method 10/18/22 13:04 10/18/22 12:00 Room Air 10/18/22 11:35 Room Air 10/18/22 11:25 Room Air 10/18/22 11:15 Room Air 10/18/22 11:05 Room Air 10/18/22 10:58 Room Air 10/18/22 09:31 Room Air 10/18/22 07:55 Room Air 10/18/22 04:21 Room Air all noted and reviewed including below
--- NOTE | 2022-10-18 16:26 | Discharge Summary ---
Discharge Summary Date of Service October 18, 2022 Notes For Next Care Provider Follow-up hemoglobin Medication Changes From Visit Flomax 0.4 mg p.o. daily Hydrocodone/acetaminophen as needed Admission HPI Per Admitting Provider History obtained from patient and records. Medical history significant for urolithiasis. 3 days history of achy right flank pain complaints reminiscent of kidney stone attack from 10 years ago (spontaneous passage following [place] ER visit) with some chills. No hematuria. Patient seen at the ER yesterday. CT abdomen pelvis initial read showed 3.3 mm obstructing distal right ureteral stone at right ureterovesical junction causing moderate right hydronephrosis/hydroureter with mild right perinephric stranding. BPH and enlarged fatty liver noted as well. Patient sent home on Flomax, Vicodin and Zofran medications and instructed to follow-up with urology outpatient. Patient return to ER with worsening symptoms associated with constipation. Poor appetite. SBP 170s upon at the ER. Medical History as above Surgical History : Hernia surgery Family History : Kidney stones, hypertension Personal/Social history : Non-smoker, occasional EtOH intake, [employer] employee Admission Exam Per Admitting Provider GENERAL: Slightly uncomfortable, slightly anxious, pleasant, no respiratory distress SKIN: Normal color, warm HEENT: Alopecia, [place] palpebral conjunctivae, no ptosis, dry buccal mucosa NECK : Supple, no tenderness CHEST : CTA, no tenderness HEART : RRR, systolic murmur best heard over left sternal border ABDOMEN: Some distention, right flank tenderness EXTREMITIES : No LE swelling/tenderness, no other conspicuous deformities noted NEUROLOGIC : Coherent, no facial asymmetry, no other gross focality Principal Dx & Hospital Course #1 = Principal Diagnosis (1) Ureterolithiasis: (1) Ureterolithiasis: Status post stone extraction, right ureter stent placement 10/18/22 Renal function stable Doing well after procedure Discussed with urology service, okay for discharge today Continue Flomax daily, as needed [place] as previously prescribed Follow-up with urology service in 1 week for stent removal Hypertension Likely secondary to pain Resolved Follow-up with PCP in 2 weeks Systolic murmur Mild Echocardiogram showing aortic valve sclerosis mild, without significant aortic valvular stenosis Mild anemia Hemoglobin 12-13 Likely secondary to hematuria Follow-up CBC as an outpatient Disposition Discharge to home Follow-up with PCP in 2 weeks Follow-up with urology in 1 week Discharge Exam General- oriented x 3, not in distress, speaks in sentences with no effort or accessory muscle use Eyes- anicteric Neck- no JVD Lungs- clear breath sounds bilaterally, no rales/wheezes Heart- normal rate, regular rhythm; no murmurs Abdomen- normal bowel sounds, nondistended, soft, nontender No CVA tenderness Extremities- no pretibial edema, no calf tenderness Neuro- alert, oriented x 3; no gross focal neurologic deficits Skin- warm & dry Updated Medication List Medication Instructions Recorded Confirmed Type hydrocodone 5 mg-acetaminophen 325 1 tab PO Q6H PRN pain #14 tabs 10/17/22 10/17/22 Rx mg tablet ondansetron 4 mg disintegrating 4 mg PO Q8H 5 days #15 tabs 10/17/22 10/17/22 Rx tablet tamsulosin 0.4 mg capsule (Flomax) 0.4 mg PO DAILY #7 caps 10/17/22 10/17/22 Rx Hospital Stay Data Consultations 10/18/22 01:32 ED Decision to Admit Stat 10/18/22 02:00 Consult Urology Routine Procedures Performed Operation Date: 10/18/22 11:30 Actual Procedures p Cystoscopy, Right Retrograde Pyelogram, Ureteroscopy, Laser Lithotripsy(Not Applicable) - Sid Kamara DO s Right Stent Placement,(Right) - Sid Kamara DO Diagnostic Imagining Performed 10/18/22 10:30 FL retrograde includes kub Routine Pending Results Patient Have Any Pending Studies at Discharge: No Discharge Instructions Given to Patient (Per Discharging Provider) PLEASE REFER TO YOUR NEW MEDICATION LIST AND FOLLOW INSTRUCTIONS CAREFULLY. YOUR NEW MEDICATIONS INCLUDE: Flomax- to help relax the ureter Hydrocodone/Acetaminophen- as needed for severe pain, no driving while taking this medication Drink plenty of fluids. PLEASE CALL YOUR PRIMARY CARE PHYSICIAN OR RETURN TO THE ER IF WITH WORSENING OF SYMPTOMS, INCLUDING increasing pain, blood in the urine, fever/chills, etc FOLLOW UP WITH UROLOGIST DR. SID KAMARA OUTLINED ABOVE. FOLLOW UP WITH PRIMARY CARE PHYSICIAN IN 2 WEEKS. Total Time Total Time Spent Total Time Spent (In Minutes): > 30 minutes
[2022-10-19] MEDS ORDERED: lisinopril 2.5 MG TAB PO SCH (09:00)
[2022-10-19] MEDS ORDERED: DOCUSATE SODIUM/SENNA 50/8.6MG TAB PO SCH (09:00)
[2022-10-19] MEDS ORDERED: TAMSULOSIN HCL 0.4 MG CAP PO SCH (09:00)
[2022-10-23 21:42] LABS: Component 2 DNR; Source URETER STONE
== END 2022-10-18 18:10 | disposition home or self-care (01) | DRG 661 ==
LOC: ED 22:40 → 3N 10-18 01:38 → INTOOBSV 10-18 01:38 → 3N 10-18 03:57